=== PATIENT | male | born 1970 | race Caucasian/White ===

== ENCOUNTER 2017-12-06 15:17 | Emergency (ER) | payer MEDICARE ==
[~2017-12-06] VITALS: Ht 177.8 cm; Wt 95.8 kg
[~2017-12-06 15:17] MED LIST: ATEN-102 PO; LAMO200T PO; QUET100 PO
[2017-12-06 15:23] VITALS: BP 186/127; PULSE 96; RESP 16; TEMP 97.8; O2SAT 97
[2017-12-06 15:33] VITALS: BP_SYST 166; BP_SYST 207; BP_DIAS 110; BP_DIAS 123; PULSE 90; RESP 16; O2SAT 95
[2017-12-06] MEDS ORDERED: LISI40TA PO (15:44)
[2017-12-06] MEDS ORDERED: QUET1TAB8 PO (15:44)
[2017-12-06 16:19] LABS: AUTOMATED NEUTROPHIL # 4.9 TH/MM3 (1.8-7.7); BASOPHIL # 0.1 TH/MM3 (0-0.2); EOSINOPHIL # 0.3 TH/MM3 (0-0.4); EOSINOPHIL % 3.9 % (0.0-4.0); HEMATOCRIT 49.4 % (39.0-51.0); HEMOGLOBIN 16.8 GM/DL (13.0-17.0); LYMPH % 23.4 % (9.0-44.0); LYMPHOCYTE # 1.7 TH/MM3 (1.0-4.8); MEAN CELL VOLUME 86.5 FL (80.0-100.0); MEAN CORPUSCULAR HEMOGLOBIN 29.5 PG (27.0-34.0); MEAN PLATELET VOLUME 9.1 FL (7.0-11.0); MONOCYTE # 0.4 TH/MM3 (0-0.9); NEUT % 66.7 % (16.0-70.0); PLATELET COUNT 262 TH/MM3 (150-450); RED BLOOD COUNT 5.72 MIL/MM3 (4.50-5.90); RED CELL DISTRIBUTION WIDTH 12.4 % (11.6-17.2); WHITE BLOOD COUNT 7.4 TH/MM3 (4.0-11.0)
[2017-12-06 16:42] LABS: CHLORIDE 108 MEQ/L (98-107); SODIUM (NA) 140 MEQ/L (136-145)
[2017-12-06 16:46] LABS: CALCIUM 8.6 MG/DL (8.5-10.1)
[2017-12-06 16:47] LABS: ALBUMIN 3.8 GM/DL (3.4-5.0); BICARBONATE 25.8 MEQ/L (21.0-32.0); BLOOD UREA NITROGEN 11 MG/DL (7-18); GLUCOSE,RANDOM 90 MG/DL (74-106)
[2017-12-06 16:50] LABS: ALT (GPT) 35 U/L (12-78); AST (GOT) 13 U/L (15-37); CREATININE 0.74 MG/DL (0.60-1.30); GLOMERULAR FILTRATION RATE 113 ML/MIN (>89)
[2017-12-06 16:51] LABS: TOTAL BILIRUBIN ADULT 0.5 MG/DL (0.2-1.0); TOTAL PROTEIN 7.6 GM/DL (6.4-8.2)
[2017-12-06 16:53] LABS: ALKALINE PHOSPHATASE 106 U/L (45-117)
[2017-12-06 16:55] LABS: TROPONIN I LESS THAN 0.02 NG/ML (0.02-0.05)
[2017-12-06] MEDS ORDERED: METO25TA3 PO (17:16)
--- NOTE | 2017-12-06 17:16 | PD ---
HPI Chief Complaint: Hypertension Time Seen by Provider: 15:32 Travel History International Travel<30 days: No Contact w/Intl Traveler<30days: No Traveled to known affect area: No History of Present Illness HPI Patient is a 47-year-old male comes in due to hypertension. He says that about 4 months ago his doctor changed his medication and it has not been working as well for him. He says he went to his appointment at [facility] and the doctor said he needed to get his blood pressure under control and he cannot see him. He says he tried calling his doctor's office and the nurse told him to come to the emergency department. He does have an appointment in 2 weeks with his primary care doctor. He denies any chest pain, shortness of breath, blurred vision. Severity is mild. PFSH Past Medical History Bipolar Disorder: Yes Diabetes: No Diminished Hearing: No Hypertension: Yes Schizophrenia: Yes Thyroid Disease: Yes Triglycerides - High: Yes Tetanus Vaccination: < 5 Years Influenza Vaccination: No ?: Not Social History Alcohol Use: No Tobacco Use: Yes (1 pack per day ) Substance Use: No Allergies-Medications (Allergen,Severity, Reaction): Coded Allergies: No Known Allergies (Verified Adverse Reaction, Unknown, 12/06/17) Reported Meds & Prescriptions Reported Meds & Active Scripts Active Reported Lisinopril 40 Mg Tab 40 Mg PO DAILY Quetiapine (Quetiapine Fumarate) 100 Mg Tab 100 Mg PO HS Review of Systems Except as stated in HPI: all other systems reviewed are Neg General / Constitutional: No: Fever, Chills Eyes: No: Blurred Vision HENT: No: Headaches, Lightheadedness Cardiovascular: No: Chest Pain or Discomfort Respiratory: No: Shortness of Breath Gastrointestinal: No: Nausea, Vomiting Musculoskeletal: No: Myalgias, Edema Skin: No Rash, No Change in Pigmentation Neurologic: No: Weakness, Dizziness Physical Exam Narrative GENERAL: Awake and alert, in no acute distress. SKIN: Focused skin assessment warm/dry. No wounds or signs of infection. HEAD: Atraumatic. Normocephalic. EYES: Pupils equal and round. No scleral icterus. Extraocular movements intact. ENT: Mucous membranes pink and moist. NECK: Trachea midline. No JVD. CARDIOVASCULAR: Regular rate and rhythm. No murmur appreciated. RESPIRATORY: No accessory muscle use. Clear to auscultation. Breath sounds equal bilaterally. GASTROINTESTINAL: Abdomen soft, non-tender, nondistended. MUSCULOSKELETAL: No obvious deformities. No clubbing. No cyanosis. No edema. NEUROLOGICAL: Awake and alert. No obvious cranial nerve deficits. Motor grossly within normal limits. Normal speech. PSYCHIATRIC: Appropriate mood and affect; insight and judgment normal. Data Data Last Documented VS Vital Signs Date Time Temp Pulse Resp B/P (MAP) Pulse Ox O2 Delivery O2 Flow Rate FiO2 12/06/17 15:33 90 16 207/110 (142) 95 Room Air 166/123 (137) 12/06/17 15:23 97.8 Orders Orders Iv Access Insert/Monitor (12/06/17 15:40) Complete Blood Count With Diff (12/06/17 15:40) Comprehensive Metabolic Panel (12/06/17 15:40) Troponin I (12/06/17 15:40) Electrocardiogram (12/06/17 ) Labs Laboratory Tests Test 12/06/17 16:10 White Blood Count 7.4 TH/MM3 Red Blood Count 5.72 MIL/MM3 Hemoglobin 16.8 GM/DL Hematocrit 49.4 % Mean Corpuscular Volume 86.5 FL Mean Corpuscular Hemoglobin 29.5 PG Mean Corpuscular Hemoglobin Concent 34.0 % Red Cell Distribution Width 12.4 % Platelet Count 262 TH/MM3 Mean Platelet Volume 9.1 FL Neutrophils (%) (Auto) 66.7 % Lymphocytes (%) (Auto) 23.4 % Monocytes (%) (Auto) 5.0 % Eosinophils (%) (Auto) 3.9 % Basophils (%) (Auto) 1.0 % Neutrophils # (Auto) 4.9 TH/MM3 Lymphocytes # (Auto) 1.7 TH/MM3 Monocytes # (Auto) 0.4 TH/MM3 Eosinophils # (Auto) 0.3 TH/MM3 Basophils # (Auto) 0.1 TH/MM3 CBC Comment DIFF FINAL Differential Comment Blood Urea Nitrogen 11 MG/DL Creatinine 0.74 MG/DL Random Glucose 90 MG/DL Total Protein 7.6 GM/DL Albumin 3.8 GM/DL Calcium Level 8.6 MG/DL Alkaline Phosphatase 106 U/L Aspartate Amino Transf (AST/SGOT) 13 U/L Alanine Aminotransferase (ALT/SGPT) 35 U/L Total Bilirubin 0.5 MG/DL Sodium Level 140 MEQ/L Potassium Level 3.7 MEQ/L Chloride Level 108 MEQ/L Carbon Dioxide Level 25.8 MEQ/L Anion Gap 6 MEQ/L Estimat Glomerular Filtration Rate 113 ML/MIN Troponin I LESS THAN 0.02 NG/ML MDM Medical Decision Making Medical Screen Exam Complete: Yes Emergency Medical Condition: Yes Medical Record Reviewed: Yes Interpretation(s) ECG shows normal sinus rhythm at a rate of 81, no ST elevation or depression, normal intervals Differential Diagnosis High blood pressure versus acute kidney injury versus electrolyte abnormality Narrative Course Patient is a 47-year-old male who comes in due to high blood pressure. He is not having symptoms otherwise. He is very concerned because his father had heart attack around this age. IV established, labs sent. Labs show no acute abnormalities. Patient given a prescription for metoprolol and it advised to keep his appointment in 2 weeks. Advised return anytime for any worsening symptoms. Advised of symptoms of low blood pressure and to hold the metoprolol if this occurs. Diagnosis Primary Impression: Hypertension Qualified Codes: I10 - Essential (primary) hypertension Patient Instructions: Chronic Hypertension (ED), General Instructions Additional Instructions: Try the new blood pressure medication. Stop this medication if you are feeling lightheaded, dizzy, too fatigued. Follow-up with your doctor. Return anytime for any worsening symptoms. Scripts Metoprolol Tartrate (Metoprolol Tartrate) 25 Mg Tab 25 MG PO DAILY, #14 TAB 0 Refills Prov: Mariah Oropeza MD 12/06/17 Disposition: DISCHARGE HOME Condition: Stable Mariah Oropeza MD Dec 06, 2017 17:16
[2017-12-06 17:38] VITALS: BP 178/120
--- NOTE | 2017-12-06 21:58 | EKG ---
Date Performed: 12/06/2017 Time Performed: 15:48:19 PTAGE: 47 years EKG: Sinus rhythm BORDERLINE LEFT AXIS DEVIATION BORDERLINE ECG PREVIOUS TRACING : 07/28/2001 21.41 Compared to previous tracing, sinus arrhythmia is no longer evident. DOCTOR: Kalin Lawrence Interpretating Date/Time 12/06/2017 21:57:38
== END 2017-12-06 17:48 | disposition home or self-care (01) ==
LOC: PHED 15:17
DX: I10 Essential (primary) hypertension (principal); F31.9 Bipolar disorder, unspecified; F20.9 Schizophrenia, unspecified; E07.9 Disorder of thyroid, unspecified; E78.1 Pure hyperglyceridemia; F17.200 Nicotine dependence, unspecified, uncomplicated; Z79.899 Other long term (current) drug therapy
CPT/HCPCS: 80053; 84484; 85025; 93005